=== PATIENT | male | born 1945 | race Caucasian/White ===

== ENCOUNTER → 2017-05-23 | Outpatient (CLI) | payer MEDICARE, BC ==
[~2017-05-23] MED LIST: ALLEGRA 180MG180 MG PO; ALLEGRA-D 12 HO1 TER PO; AMOXICILLIN 8751 TAB PO; CLONAZEPAM0.5 MG PO; COZAAR; DESYREL 50MG50 MG PO; DOXAZOSIN2 MG PO; FEXOFENADINE60 MG PO; FLOMAX; GARLIC; KLONOPIN WAFE0.25 MG PO; LAMICTAL 100MG100 MG PO; LAMICTAL150 MG PO; LAMOTRIGINE100 MG PO; LISINOPRIL20 MG PO; LORTAB 7.5/5001 TAB PO; METFORMIN; METFORMIN1000 MG PO; MIRTAZAPINE30 MG PO; PREDNISONE20 MG PO; PRILOTC; PRINIVIL20 MG PO; PROZAC; RITALIN 20M20 MG/TAB PO; SYMBYAX 25 MG-61 CAP PO; TRAZODONE150 MG PO; VENLAFAXINE HCL75 MG PO; VIIBRYD40 MG PO; XANAX 0.5MG0.5 MG PO; XANAX0.25 MG PO
== END ==
LOC: BHSO 14:29
DX: F31.73 Bipolar disorder, in partial remission, most recent episode manic (principal)

== ENCOUNTER → 2017-08-13 | Outpatient (CLI) | payer MEDICARE, BC | LOC: BHSO 15:14 | DX: F33.1 Major depressive disorder, recurrent, moderate (principal) ==